=== PATIENT | male | born 1945 | race Caucasian/White ===

== ENCOUNTER 2017-04-19 11:52 | Emergency (ER) | payer MEDICARE ==
--- NOTE | ~2017-04-19 | CR72 ---
[facility] A Service of [facility] & [facility] RADIOLOGY TEXT RESULTS PATIENT: CHANDRIKA HUNT LOCATION: [facility] : 47 UNIT #: [id number] AGE: [address]: Vamshi Kinney MD SEX: M ORDER DR: [id number] [facility] [address] [place], [place] [address] [id number] E MR#: [id number] Acc #: [id number] NAME: CHANDRIKA HUNT : 1945 SEX: M STUDY DATE/TIME: 04/19/2017 12:29 UNIT: [facility] ROOM: STUDY DESCRIPTION: CR Chest Single View Portable Attending Physician: Vamshi Kinney M.D. Ordering Physician: Vamshi Kinney M.D. Primary Care Physician: Andreas Acharya M.D. MEDICAL IMAGING REPORT This report is preliminary unless electronic signature is present EXAM Portable chest HISTORY Shortness of air and leg swelling starting today. History of throat cancer. COMPARISON STUDIES 05/26/2014. FINDINGS AP portable view of the chest is obtained. Heart size and vascularity are normal and the lungs are clear. Mild apical pleural thickening on the left is stable. Bones are unremarkable. IMPRESSION No change. No active disease. Dictated by... Devonte Medina M.D. THIS IS AN ELECTRONICALLY VERIFIED REPORT Devonte Medina M.D. at 04/20/2017 7:03 AM FEL/pcl TD: 04/19/2017 21:34 JOB #: [id number] MEDICAL IMAGING REPORT Page 1 of 1 COPY
--- NOTE | ~2017-04-19 | EKG ---
PATIENT: CHANDRIKA HUNT UNIT #: [id number] Ventricular Rate: 92 BPM Atrial Rate: 92 BPM P-R Interval: 194 ms QRS Duration: 92 ms Q-T Interval: 366 ms QTC Calculation(Bezet): 452 ms P [place]: 86 degrees Calculated R [place]: 116 degrees Calculated T [place]: 80 degrees Diagnosis Line: Normal sinus rhythm Diagnosis Line: Right axis deviation Diagnosis Line: Abnormal ECG Diagnosis Line: No previous ECGs available Diagnosis Line: Confirmed by LEEROY VEGA MD ([id number]) on Diagnosis Line: 04/19/2017 2:16:04 PM INTERPRETING MD: HANSA
[2017-04-19 12:41] LABS: BASOPHIL# 0.1 X10e3 (0-0.3); BASOPHIL% 0.8 % (0-2.5); EOSINOPHIL# 0.1 X10e3 (0-0.7); EOSINOPHIL% 0.8 % (0.0-7.0); HEMATOCRIT 42.7 % (38.0-50.0); HEMOGLOBIN 13.9 gm/dL (13.0-16.0); LYMPHOCYTE# 1.7 X10e3 (1.0-3.5); LYMPHOCYTE% 18.5 % (17.0-45.0); MEAN CELL VOLUME 97.9 FL (83-96); MEAN CORPUSCULAR HGB CONC 32.7 g/dL (30-36); MONOCYTE# 1.1 X10e3 (0-1.0); MONOCYTE% 11.5 % (3.0-12.0); NEUTROPHIL# 6.4 X10e3 (1.5-7.1); NEUTROPHIL% 68.4 % (40-75); PLATELET COUNT 295 X10e3 (140-420); RED BLOOD COUNT 4.36 X10e (3.90-5.60); RED CELL DISTRIBUTION WIDTH 14.1 % (11.0-15.5); WHITE BLOOD COUNT 9.3 X10e3 (4.0-10.5)
[2017-04-19 12:43] LABS: DIFF IND NO
[2017-04-19 12:52] LABS: POC - CKMB <1.0 ng/mL (0.0-7.9); POC - TROPONIN <0.05 ng/mL (<=0.05)
[2017-04-19 13:08] LABS: ALKALINE PHOSPHATASE 75 U/L (32-92); ALT (SGPT) 13 U/L (10-40); AST (SGOT) 17 U/L (10-42); BILIRUBIN,TOTAL 0.5 mg/dL (0.2-2.0); BLOOD UREA NITROGEN 16 mg/dL (9-23); BUN/CREATININE RATIO 14.54; CALCIUM SERUM 8.7 mg/dL (8.4-10.2); CARBON DIOXIDE 28 mmol/L (22-31); CHLORIDE 96 mmol/L (100-111); CREATININE SERUM 1.1 mg/dL (0.6-1.4); GLOM FILT RATE Estimated 67.7 mL/min (>60); GLUCOSE FASTING 115 mg/dL (70-110); POTASSIUM 4.1 mmol/L (3.5-5.1); PROTEIN TOTAL SERUM 6.9 g/dL (6.0-8.3); SODIUM 133 mmol/L (135-145)
[2017-04-19 13:09] LABS: BILIRUBIN, DIRECT <0.1 mg/dL (0.0-0.2); BILIRUBIN,INDIRECT 0.4 mg/dL (0.0-0.9)
== END 2017-04-19 15:12 | disposition home or self-care (01) ==
LOC: CED 11:52
PROVIDERS: Emergency Medicine
DX: J98.01 Acute bronchospasm (principal); R60.0 Localized edema; E78.5 Hyperlipidemia, unspecified; I10 Essential (primary) hypertension; F17.210 Nicotine dependence, cigarettes, uncomplicated
CPT/HCPCS: 36415; 71010; 80048; 80076; 82553; 83880; 84484; 85025; 93005; 94640; 96374; 99284; J2930

== ENCOUNTER → 2017-06-23 | Outpatient (CLI) | payer MEDICARE ==
--- NOTE | ~2017-06-23 | CT137 ---
[facility] A Service of [facility] RADIOLOGY TEXT RESULTS PATIENT: CHANDRIKA HUNT LOCATION: [facility] : 47 UNIT #: [id number] AGE: [address]: Paco Hodgson MD SEX: M ORDER DR: [id number] [id number] [facility]. [place], [place] [address] [id number] O MR#: [id number] Acc #: [id number] NAME: CHANDRIKA HUNT : 1945 SEX: M STUDY DATE/TIME: 06/23/2017 14:59 UNIT: [facility] ROOM: STUDY DESCRIPTION: CT Lung Screening annual Attending Physician: Paco Hodgson M.D. Referring Physician: Paco Hodgson M.D. Ordering Physician: Paco Hodgson M.D. Primary Care Physician: Andreas Acharya M.D. MEDICAL IMAGING REPORT This report is preliminary unless electronic signature is present EXAM CT chest INDICATION Lung cancer screening. 71-year-old male is a current smoker with a 40-pack year history of smoking. TECHNIQUE CT of the chest without contrast. Coronal and sagittal reconstructions are obtained. The exam was performed as a low-dose chest CT utilizing lung cancer screening protocol. CTDI volume 3 mGy. DLP 116.4 mGy-cm. This CT exam was performed with one or more of the following radiation dose reduction techniques: automatic exposure control, adjustment of mA and/or kV according to patient size, and iterative reconstruction. COMPARISON CT chest dated 06/19/2016 and 06/05/2015. FINDINGS This is a negative lung cancer screening. There is severe emphysema throughout both lungs. Extensive biapical parenchymal scarring is unchanged from 06/05/2015. No discrete mass within the apical scarring. The central airways are patent. Chronic bronchial wall thickening is unchanged from the prior study. No pathologically enlarged mediastinal or hilar lymph nodes. No pericardial or pleural effusion. IMPRESSION [facility] A Service of [facility] RADIOLOGY TEXT RESULTS PATIENT: CHANDRIKA HUNT LOCATION: [facility] : 47 UNIT #: [id number] AGE: [address]: Paco Hodgson MD SEX: M ORDER DR: 1. Negative lung cancer screening. 2. Severe emphysema. 3. Significant biapical scarring is unchanged from at least the 06/05/2015 exam. 4. ACR Lung-RADS classification 1: Negative examination. RECOMMENDATIONS: Annual lung cancer screening with a low-dose chest CT. Dictated by... Kristopher Munoz M.D. THIS IS AN ELECTRONICALLY VERIFIED REPORT Kristopher Munoz M.D. at 06/24/2017 4:16 PM VANNESSA/keyana TD: 06/24/2017 03:20 JOB #: [id number] MEDICAL IMAGING REPORT Page 1 of 1 COPY
== END | disposition home or self-care (01) ==
LOC: CCAT 14:12
DX: F17.210 Nicotine dependence, cigarettes, uncomplicated (principal)
CPT/HCPCS: G0297